=== PATIENT | female | born 1955 | race Hispanic/Latino ===

== ENCOUNTER 2017-11-15 20:01 | Emergency (ER) | payer MEDICARE, OTHER ==
[2017-11-15 21:27] VITALS: BP 154/79; PULSE 73; RESP 18; TEMP 97.9; O2SAT 100
--- NOTE | 2017-11-15 23:30 | ED PDOC ---
HPI: Female Pain Time Seen by Provider: 11/15/17 22:21 Chief Complaint (Nursing): Female Genitourinary History Per: Patient History/Exam Limitations: no limitations Onset/Duration Of Symptoms: Other (x 1 month) Current Symptoms Are (Timing): Still Present Additional Complaint(s): 62-year-old female, with a history of urinary distension, UTIs, hypertension and HIV, presents to ED for vaginal burning sensation ongoing for 1 month. Reports painful burning in vaginal area. Patient reports she has seen her Urologist and OBGYN. Denies any vaginal discharge or bleeding. At times, has urinary retension, but is able to urinate now. (-) abdominal pain, (-) fever, ( -) diarrhea. PMD: Ysabel Grant Abnormal Vaginal Bleeding: No Past Medical History Reviewed: Historical Data, Nursing Documentation, Vital Signs Vital Signs: Last Vital Signs Temp 97.9 F 11/15/17 21:13 Pulse 73 11/15/17 21:13 Resp 18 11/15/17 21:13 BP 154/79 H 11/15/17 21:13 Pulse Ox 100 11/15/17 21:13 - Medical History PMH: HIV, Osteoporosis Other PMH: UTI, Urinary distension - Surgical History Surgical History: Tonsillectomy - Family History Family History: States: Unknown Family Hx - Home Medications Home Medications: Ambulatory Orders Medication Instructions Recorded Vaginal Moisturizer Combo No.4 1 appl TP DAILY #1 gel..gram. 11/15/17 [Silky Lubricating] - Allergies Allergies/Adverse Reactions: Allergies Allergy/AdvReac Type Severity Reaction Status Date / Time No Known Allergies Allergy Verified 11/15/17 21:25 Review of Systems ROS Statement: Except As Marked, All Systems Reviewed And Found Negative Constitutional: Negative for: Fever Gastrointestinal: Negative for: Abdominal Pain, Diarrhea Genitourinary Female: Positive for: Other (Vaginal burning sensation). Negative for: Vaginal Discharge, Vaginal Bleeding Physical Exam - Reviewed Nursing Documentation Reviewed: Yes Vital Signs Reviewed: Yes - Physical Exam Appears: Positive for: Non-toxic Head Exam: Positive for: ATRAUMATIC, NORMAL INSPECTION, NORMOCEPHALIC Skin: Positive for: Normal Color, Warm, Dry Eye Exam: Positive for: Normal appearance, EOMI, PERRL ENT: Positive for: Normal ENT Inspection Neck: Positive for: Normal Cardiovascular/Chest: Positive for: Regular Rate, Rhythm Respiratory: Positive for: Normal Breath Sounds (Lungs clear). Negative for: Respiratory Distress Gastrointestinal/Abdominal: Positive for: Normal Exam, Soft. Negative for: Tenderness Pelvic Exam: Positive for: External Exam Normal, Other (building supervisor Donna present during Pelvic Exam). Negative for: Active Bleeding, Discharge Back: Positive for: Normal Inspection Extremity: Positive for: Normal ROM. Negative for: Deformity Neurologic/Psych: Positive for: Alert, Oriented (x 3). Negative for: Motor/ Sensory Deficits - ECG O2 Sat by Pulse Oximetry: 100 (RA) Pulse Ox Interpretation: Normal Medical Decision Making Medical Decision Making: Time: 22:45 Impression(s): Vaginal discomfort pain, Differentials include, but not limited to: Atrophic vaginitis UTI, Infectious vaginitis Plan: - ED Urine Dipstick Time: 00:01 - Genital Culture Upon provider evaluation patient is medically stable, and requires no further treatment in the ED at this time. Patient will be discharged with Rx for Silky Lubricating. Counseling was provided and all questions were answered regarding diagnosis and need for follow up with PCP within 2-3 days. There is agreement to discharge plan. Return if symptoms persist or worsen. Scribe Attestation: Documented by Mike Marks, acting as a scribe for Josemanuel Andujar MD. Provider Scribe Attestation: All medical record entries made by the Scribe were at my direction and personally dictated by me. I have reviewed the chart and agree that the record accurately reflects my personal performance of the history, physical exam, medical decision making, and the department course for this patient. I have also personally directed, reviewed, and agree with the discharge instructions and disposition. Disposition - Clinical Impression Clinical Impression: Vaginal dryness - Patient ED Disposition Is Patient to be Admitted: No Doctor Will See Patient In The: Office Counseled Patient/Family Regarding: Studies Performed, Diagnosis, Need For Followup - Disposition Referrals: [facility] [place] [Outside] Disposition: Routine/Home Disposition Time: 00:02 Condition: STABLE Additional Instructions: Apply cream as indicated. Follow up with your PCP in 2-3 days. Prescriptions: Vaginal Moisturizer Combo No.4 [Silky Lubricating] 1 appl TP DAILY #1 gel..gram. Instructions: Atrophic Vaginitis
== END 2017-11-16 00:10 | disposition home or self-care (01) ==
LOC: H.ER 20:01
DX: N95.2 Postmenopausal atrophic vaginitis (principal); I10 Essential (primary) hypertension